=== PATIENT | female | born 1955 | race Caucasian/White ===

== ENCOUNTER → 2017-05-28 | Outpatient (CLI) | payer BC ==
[~2017-05-28] MED LIST: FEOSOL45 MG PO; OMEGA 3-6-9 CO400 MG PO; PRILOSEC20 MG PO; PROBIOTIC1 EAC2 PO; PROZAC20 MG PO; THERA-VITE W/ B1 TAB PO
== END | disposition disaster alternative care site (69) ==
LOC: GBCOE 09:09
DX: N63 Unspecified lump in breast (principal)
CPT/HCPCS: G0206; G0279